=== PATIENT | female | born 1980 | race Caucasian/White ===

== ENCOUNTER 2016-11-17 00:39 | Emergency (ER) | payer MEDICAID, OTHER ==
[~2016-11-17] VITALS: Ht 172.7 cm; Wt 113.4 kg
[2016-11-17] MEDS ORDERED: diphenhdrAMINE HCL 50 MG/1 ML VL IV ONE (01:15)
[2016-11-17] MEDS ORDERED: methylPREDNISolone SOD SUCC 125 MG/2 ML VL IV ONE (01:15)
[2016-11-17] MEDS ORDERED: SODIUM CHLORIDE 0.9% 1,000 ML IV ONE ×2 (01:30→03:15)
[2016-11-17] MEDS ORDERED: EPINEPHrine HCL 1 MG/1 ML AMP SC ONE (03:15)
[2016-11-17] MEDS ORDERED: FAMOTIDINE (10MG/ML) 2ML VL IV ONE (03:15)
[2016-11-17 05:24] VITALS: BP 129/81
== END 2016-11-17 05:26 | disposition home or self-care (01) ==
LOC: ER 00:57
DX: T78.40XA Allergy, unspecified, initial encounter (principal); T78.3XXA Angioneurotic edema, initial encounter; Z88.0 Allergy status to penicillin
CPT/HCPCS: 96361; 96372; 96374; 96375; 99284; J0171; J1200; J2930; J3490; J7030

== ENCOUNTER 2016-11-25 21:55 | Emergency (ER) | payer MEDICAID ==
[~2016-11-25] VITALS: Ht 172.7 cm; Wt 113.4 kg
[2016-11-25] MEDS ORDERED: diphenhdrAMINE HCL 25 MG CAP PO ONE ×2 (22:28→22:45)
[2016-11-25 22:35] VITALS: BP 119/76
[2016-11-26] MEDS ORDERED: DEXAMETHASONE SOD PHOS 10MG/1ML VIAL INJ IM ONE (00:45)
== END 2016-11-26 01:39 | disposition home or self-care (01) ==
LOC: ER 21:55
DX: T78.40XA Allergy, unspecified, initial encounter (principal); L50.9 Urticaria, unspecified; X58.XXXA Exposure to other specified factors, initial encounter; Z88.0 Allergy status to penicillin
CPT/HCPCS: 81025; 96372; 99283; J1100

== ENCOUNTER 2017-04-30 02:41 | Emergency (ER) | payer MEDICAID ==
[~2017-04-30] VITALS: Ht 170.2 cm; Wt 136.1 kg
[2017-04-30] MEDS ORDERED: methylPREDNISolone SOD SUCC 125 MG/2 ML VL IV ONE ×2 (03:00→05:15)
[2017-04-30] MEDS ORDERED: EPINEPHrine HCL 1 MG/1 ML AMP SC ONE ×2 (03:00→05:15)
[2017-04-30] MEDS ORDERED: FAMOTIDINE (10MG/ML) 2ML VL IV ONE (05:15)
[2017-04-30 07:10] VITALS: BP 112/58
== END 2017-04-30 07:12 | disposition home or self-care (01) ==
LOC: ER 02:46
DX: T78.3XXA Angioneurotic edema, initial encounter (principal); T78.40XA Allergy, unspecified, initial encounter; Z88.0 Allergy status to penicillin
CPT/HCPCS: 96372; 96374; 96375; 96376; 99284; J0171; J2930; J3490